=== PATIENT | female | born 1985 | race Hispanic/Latino ===

== ENCOUNTER 2018-10-18 04:12 | Emergency (ER) | payer BC, MEDICAID ==
[2018-10-18 04:41] LABS: Bilirubin Negative (Negative); Blood, Urine Large (Negative); Clarity CLEAR (Clear); Glucose, Urine (Dipstick) Negative (Negative); Leukocyte Negative (Negative); Nitrite Negative (Negative); Protein, Urine (Dipstick) Negative (Neg-Trace); Specific Gravity, Urine 1.012 (1.002-1.036); Urobilinogen 0.2 mg/dL (0.2-1.0); pH, Urine 6.5 (5.0-9.0)
[2018-10-18 04:43] LABS: Bacteria/HPF None Seen HPF (None Seen); Squamous Epithelial 0-3 HPF (0-3); WBC/HPF 0-3 HPF (0-3)
[2018-10-18 04:54] LABS: Hyaline Casts/LPF NONE SEEN LPF (0-3 Hyaline)
[2018-10-18 05:03] LABS: #Basophils 0.1 thou/uL (0.0-0.2); #Eosinphils 0.2 thou/uL (0.0-0.7); #Lymphocytes 2.4 thou/uL (1.20-3.40); #Monocytes 0.6 thou/uL (0.11-0.59); #Neutrophils 3.8 thou/uL (1.40-6.50); %Basophils 1.1 % (0.0-1.0); %Eosinophils 2.4 % (0.0-10.0); %Lymphocytes 33.8 % (21.0-51.0); %Monocytes 8.7 % (0.0-10.0); %Neutrophils 54.1 % (42.0-75.0); Hemoglobin 12.4 g/dL (12.0-16.0); Mean Corpuscular HGB CONC 33.3 g/dL (32.0-36.0); Mean Corpuscular Hemoglobin 28.9 pg (27.0-31.0); Mean Corpuscular Volume 86.7 fL (78.0-98.0); Mean Platelet Volume 8.4 fL (7.4-10.4); Platelet Count 192 thou/uL (130-400); RBC Distribution Width 13.1 % (11.5-14.5)
== END 2018-10-18 06:15 | disposition home or self-care (01) ==
LOC: ERS 04:12
DX: O20.0 Threatened abortion (principal); Z3A.01 Less than 8 weeks gestation of pregnancy
CPT/HCPCS: 36415; 81003; 81015; 84702; 85025; 86900; 86901

== ENCOUNTER 2019-01-12 13:19 | Outpatient (CLI) | payer OTHER ==
--- NOTE | 2019-01-12 14:38 | ULT ---
Obstetric sonogram HISTORY: Second trimester gestation. evaluation. FINDINGS: Multiple transabdominal sonographic views show a single intrauterine gestation in cephalic presentation. Cervix is closed and 5.4 cm. Grade 0 placenta is anterior. Amniotic fluid within normal limits. Four-chamber heart shows motion at 153 bpm. spine and kidneys are intact as visu alized. Three-vessel cord shows a normal insertion. No gross intracranial abnormalities. Measurements are as follows: Biparietal diameter 18 weeks 6 days. Head circumference 18 weeks 3 days. Abdominal circumference 19 weeks 2 days. Femur length 18 weeks 0 days. Hadlock 56 percentile. Estimated date of delivery based on today's sonogram 06/10/2019. IMPRESSION: Single intrauterine gestation. Estimated gestational age based on today's sonogram 18 wee ks 5 days.
== END 2019-01-12 13:20 | disposition home or self-care (01) ==
LOC: BICULT 13:19
PROVIDERS: ATTEND Family Medicine
DX: Z34.80 Encounter for supervision of other normal pregnancy, unspecified trimester (principal); Z3A.18 18 weeks gestation of pregnancy
CPT/HCPCS: 76805

== ENCOUNTER 2019-05-28 14:33 | Outpatient (CLI) | payer OTHER ==
--- NOTE | 2019-05-28 15:19 | ULT ---
LIMITED OBSTETRICAL ULTRASOUND: DATE: 05/28/2019. HISTORY: Evaluate growth, scheduled for on 06/01/2019. TECHNIQUE: Multiplanar grayscale sonographic imaging of the gravid uterus obtained. FINDINGS: A single intrauterine gestation is present demonstrating a vertex presentation. Placenta located ante riorly with no evidence for previa or abruption. anatomy is not assessed on this exam. heart rate is 136 bpm. Amniotic fluid index is 8.6 cm. biometry: BPD 8.8 cm, 35 weeks 4 days. HC 31.8 cm, 35 weeks 5 days. AC 31.6 cm, 35 weeks 3 days. FL 6.9 cm, 35 weeks 4 days. Average age based on ultrasound is 35 weeks 3 days. Estimated date of delivery is 06/29/2019. Estimated weight is 2700 grams +/- 400 g (5 lbs. 15 oz. +/- 14 ounces). IMPRESSION: Single intrauterine gestation as detailed above. Transcribed Date/Time: 05/28/2019 3:31 PM
== END 2019-05-28 14:34 | disposition home or self-care (01) ==
LOC: ULT 14:33
PROVIDERS: ATTEND Family Medicine
DX: Z34.83 Encounter for supervision of other normal pregnancy, third trimester (principal); Z3A.35 35 weeks gestation of pregnancy
CPT/HCPCS: 76815

== ENCOUNTER 2019-06-01 05:02 | Inpatient (IN) | payer OTHER ==
[2019-06-01 05:46] VITALS: BMI 34.0
[2019-06-01] MEDS ORDERED: CEFAZOLIN 2 GM in Premix Bag 1 BAG IVPB SCH (05:46)
[2019-06-01] MEDS ORDERED: Ondansetron PF 4 MG/2 ML Vial IVP PRN ×3 (05:46→11:12)
[2019-06-01] MEDS ORDERED: Bicitra 30 ML UDCUP PO SCH (05:46)
[2019-06-01] MEDS ORDERED: Promethazine HCl 25 MG/ML VIAL IM PRN ×2 (05:46→08:33)
[2019-06-01] MEDS ORDERED: hydrALAZINE 20 MG/ML VIAL SLOW IVP PRN ×2 (05:46→11:12)
[2019-06-01] MEDS: Lactated Ringer's 1,000 ML IV SCH (06:10)
[2019-06-01 06:15] LABS: Hemoglobin 12.4 g/dL (12.0-16.0); Mean Corpuscular HGB CONC 33.6 g/dL (32.0-36.0); Mean Corpuscular Hemoglobin 29.1 pg (27.0-31.0); Mean Corpuscular Volume 86.5 fL (78.0-98.0); Mean Platelet Volume 11.7 fL (7.4-10.4); Platelet Count 133 thou/uL (130-400); RBC Distribution Width 14.2 % (11.5-14.5); Red Blood Cell (RBC) Count 4.26 mill/uL (4.20-5.40); White Blood Cell (WBC) Count 6.8 thou/uL (4.8-10.8)
[2019-06-01 06:54] LABS: HBSAg Index 0.17 S/CO (0-0.99); Hep B Surf Ag Non-Reactive S/CO (NonReactive); Syphilis Antibody Nonreactive (Nonreactive); Syphilis Antibody Index 0.03 S/CO (<1.00 Non-Reactive)
[2019-06-01] MEDS ORDERED: MORPHINE 5 MG/10 ML PF VIAL ONE (07:04)
[2019-06-01] MEDS ORDERED: Ketorolac Tromethamine 30 MG/ML VIAL ONE (07:04)
[2019-06-01] MEDS ORDERED: Oxytocin 10 UNITS/ML VIAL ONE (07:04)
[2019-06-01] MEDS ORDERED: PHENYLEPHRINE-NS 100 MCG/ML 10 ML SYRINGE ONE (07:05)
[2019-06-01] MEDS ORDERED: Ondansetron PF 4 MG/2 ML Vial ONE (07:46)
[2019-06-01] MEDS ORDERED: L&D-Morphine 4 MG/ML VIAL SLOW IVP PRN (08:33)
[2019-06-01] MEDS ORDERED: Naloxone HCl 0.4 mg/ml Vial IVP PRN ×2 (08:33)
[2019-06-01] MEDS ORDERED: Promethazine HCl 25 MG SUPP PR PRN (08:33)
[2019-06-01] MEDS ORDERED: HYDROmorphone 2 MG/ML VIAL SLOW IVP PRN (08:33)
[2019-06-01] MEDS ORDERED: Ondansetron HCl/PF 4 MG/2 ML Vial IVP PRN (08:33)
[2019-06-01] MEDS ORDERED: Meperidine HCl/PF 25 MG/ML VIAL SLOW IVP PRN (08:33)
[2019-06-01] MEDS ORDERED: Naloxone HCl 0.4 mg/ml Vial IV PRN (08:33)
[2019-06-01] MEDS ORDERED: Ketorolac Tromethamine 30 MG/ML VIAL IVP SCH (08:45)
[2019-06-01] MEDS ORDERED: Communication Order-Pharmacy FS SCH (08:45)
--- NOTE | 2019-06-01 10:27 | OP ---
DATE OF PROCEDURE: 06/01/2019 PREOPERATIVE DIAGNOSES: 1. Term intrauterine with previous section. 2. Intrauterine growth restriction based on 39-week ultrasound. 3. Gestational diabetes on p.o. medications. POSTOPERATIVE DIAGNOSES: 1. Term intrauterine with previous section. 2. Intrauterine growth restriction based on 39-week ultrasound. 3. Gestational diabetes on p.o. medications. 4. Status post delivery. PROCEDURE PERFORMED: Repeat low-transverse section. MAJOR ACCOUNT MANAGER: Dr. Maddy Ngo. SECOND MAJOR ACCOUNT MANAGER: Katy Villeda MS-3. ANESTHESIA: Spinal anesthetic. COMPLICATIONS: No complications. DESCRIPTION OF PROCEDURE: After adequate spinal anesthetic, the patient was placed in supine position. A wedge was placed under her right flank. A Archiblad catheter was inserted without difficulty, and the abdomen was prepped and draped in the usual sterile technique. A Pfannenstiel incision was made through the old scar. Subcutaneous tissue was opened with sharp dissection. Fascia was opened with sharp dissection. Peritoneum was opened with sharp and blunt dissection. Noted that there were some moderate adhesions, which were taken down to the omentum without difficulty. An Ashok O retractor was placed, and a low-transverse incision was made on the uterus. Membranes were ruptured. Clear fluid was encountered. A viable female infant was delivered from vertex presentation without difficulty. Infant breathed and cried spontaneously. After approximately 30 seconds, the umbilical cord was clamped and cut, and the was handed to the care of the Neonatology Team. Cord blood was obtained, and the placenta was delivered with traction manually and appeared intact without difficulty. There was minimal bleeding. The uterus was wiped clean with a wet lap, and ring forceps were placed over the edges of the hysterotomy. The hysterotomy was then closed in one layer continuous fashion using 0 Monocryl with good hemostasis. Inspection of the gutters without any bleeding and no further adhesions. The Ashok O retractor was removed, and the fascia was then closed in continuous fashion with 0 Vicryl. Sponge and instrument counts were correct. The subcutaneous tissue was then closed with 2-0 chromic in a continuous running fashion, and the skin was closed with magalys. Second instrument and sponge counts again were correct, and the patient tolerated the procedure well, to go to recovery room in good condition. The baby is a viable female , weight 6 pounds 10 ounces with Apgars 9 at one minute and 9 at five minutes, to go to level 1 nursery in good condition. QBL is pending at this time. EBL approximately 400 mL. Job ID: [id number]
[2019-06-01] MEDS ORDERED: diphenhydrAMINE 50 MG/ML VIAL ONE (11:00)
[2019-06-01] MEDS: diphenhydrAMINE 50 MG/ML VIAL IVP PRN ×2 (11:01→15:47)
[2019-06-01] MEDS ORDERED: diphenhydrAMINE 25 MG CAP PO PRN (11:12)
[2019-06-01] MEDS ORDERED: Bisacodyl 10 MG SUPP PR PRN (11:12)
[2019-06-01] MEDS ORDERED: Lanolin Ointment 7 GM TUBE TOP PRN (11:12)
[2019-06-01] MEDS ORDERED: HYDROcodone/Acetaminophen 5/325 mg Tablet PO PRN (11:12)
[2019-06-01] MEDS ORDERED: Acetaminophen 325 MG TAB PO PRN (11:12)
[2019-06-01] MEDS ORDERED: Simethicone Chewable 80 MG TAB PO PRN (11:12)
--- NOTE | 2019-06-01 12:26 | OP ---
DATE OF PROCEDURE: 06/01/2019 ADDENDUM: I was present and scrubbed to assist the uncomplicated repeat low-transverse with Dr. Roz Lauren. Please see her note for full details. Job ID: [id number]
[2019-06-01] MEDS: Ibuprofen 800 MG TAB PO SCH ×2 (16:24→22:49)
[2019-06-01] MEDS: Ketorolac Tromethamine 30 MG/ML VIAL IVP PRN ×2 (17:15→22:42)
[2019-06-01] MEDS: Docusate Calcium (SURFAK) 240 MG CAP PO SCH (22:48)
[2019-06-02] MEDS: Lactated Ringer's 1,000 ML IV SCH (01:24)
[2019-06-02] MEDS: Ketorolac Tromethamine 30 MG/ML VIAL IVP PRN (03:36)
[2019-06-02] MEDS: Ibuprofen 800 MG TAB PO SCH ×3 (07:35→21:22)
[2019-06-02 07:52] LABS: Hemoglobin 10.1 g/dL (12.0-16.0); Mean Corpuscular HGB CONC 32.2 g/dL (32.0-36.0); Mean Corpuscular Volume 86.9 fL (78.0-98.0); Mean Platelet Volume 11.5 fL (7.4-10.4); Platelet Count 113 thou/uL (130-400); RBC Distribution Width 14.3 % (11.5-14.5); Red Blood Cell (RBC) Count 3.63 mill/uL (4.20-5.40); White Blood Cell (WBC) Count 7.2 thou/uL (4.8-10.8)
[2019-06-02] MEDS: Acetaminophen/Codeine 30-300mg Tablet PO PRN ×2 (09:47→17:39)
[2019-06-02] MEDS: Prenatal Vitamin 1 TAB PO SCH (09:48)
[2019-06-02] MEDS: Docusate Calcium (SURFAK) 240 MG CAP PO SCH ×2 (09:48→21:22)
[2019-06-03] MEDS: Ibuprofen 800 MG TAB PO SCH ×3 (06:02→21:04)
[2019-06-03] MEDS: Acetaminophen/Codeine 30-300mg Tablet PO PRN (06:06)
[2019-06-03] MEDS: Prenatal Vitamin 1 TAB PO SCH (09:40)
[2019-06-03] MEDS: Docusate Calcium (SURFAK) 240 MG CAP PO SCH ×2 (09:40→21:04)
[2019-06-04] MEDS: Acetaminophen/Codeine 30-300mg Tablet PO PRN (04:31)
[2019-06-04] MEDS: Ibuprofen 800 MG TAB PO SCH (04:31)
[2019-06-04 08:01] VITALS: BP 148/67; TEMP 98.6
[2019-06-04] MEDS: Prenatal Vitamin 1 TAB PO SCH (09:15)
[2019-06-04] MEDS: Docusate Calcium (SURFAK) 240 MG CAP PO SCH (09:16)
== END 2019-06-04 12:00 | disposition home or self-care (01) | DRG 788 ==
LOC: L&D 05:02 → 3SW 11:58
PROVIDERS: ADMIT Family Medicine; ATTEND Family Medicine
PROC: 10D00Z1 Extraction of Products of Conception, Low, Open Approach (ICD-10-PCS; principal; 2019-06-02)
DX: O34.211 Maternal care for low transverse scar from previous cesarean delivery (principal); O24.425 Gestational diabetes mellitus in childbirth, controlled by oral hypoglycemic drugs; Z3A.39 39 weeks gestation of pregnancy; Z37.0 Single live birth; Z79.899 Other long term (current) drug therapy; J45.909 Unspecified asthma, uncomplicated; O99.513 Diseases of the respiratory system complicating pregnancy, third trimester; O36.5930 Maternal care for other known or suspected poor fetal growth, third trimester, not applicable or unspecified
CPT/HCPCS: 36415; 51702; 85027; 86780; 86850; 86900; 86901; 87340; J0690; J1200; J1885; J2274; J2405; J2590; Q0163